=== PATIENT | male | born 1980 | race African-American/Black ===

== ENCOUNTER 2016-10-20 09:17 | Emergency (ER) | payer OTHER ==
[~2016-10-20] VITALS: Ht 180.3 cm; Wt 90.0 kg
[~2016-10-20 09:17] MED LIST: ONDA1TAB16 PO; TRAM50 PO
[2016-10-20 09:19] VITALS: BP 136/80; PULSE 84; RESP 20; TEMP 97.9; O2SAT 100
--- NOTE | 2016-10-20 10:06 | PD ---
HPI Chief Complaint: Flank/Kidney Pain Time Seen by Provider: 10:06 Travel History International Travel<30 days: No Contact w/Intl Traveler<30days: No Traveled to known affect area: No History of Present Illness HPI 36-year-old male presents to the emergency department for evaluation right upper quadrant and epigastric pain worsening over the last several days. Patient reports nausea and vomiting. States he had a fever last evening. Patient has been a constant, aching, sharp, 8 out of 10 pain. Has no history of cholecystectomy. Has been told that he has IBD. He has diarrhea all the time. It has been without any emlvin red blood or black tar stools. Denies any hematemesis. He has no other symptoms reported this time. [facility] Past Medical History Blood Disorders: No Cancer: No Cardiovascular Problems: No Diminished Hearing: No Endocrine: No Gastrointestinal Disorders: Yes Genitourinary: Yes (PRESSURE/PAIN URINATING X 2-3 MOS, WORSE LAST WEEK) Musculoskeletal: No Neurologic: No Psychiatric: No Reproductive: No Respiratory: No Past Surgical History Tonsillectomy: Yes Other Surgery: Yes (ARMPIT SWEAT GLAND REMOVAL, RECTAL CYST REMOVED) Social History Alcohol Use: No Tobacco Use: No Substance Use: No Allergies-Medications (Allergen,Severity, Reaction): Coded Allergies: Seafood (Verified Allergy, Severe, Swelling, 10/20/16) Reported Meds & Prescriptions Reported Meds & Active Scripts Active Reported [2 refridge meds?] Omeprazole 20 Mg Cap 20 Mg PO DAILY Loperamide (Loperamide HCl) 2 Mg Tab Prednisone 10 Mg Tab 10 Mg PO DAILY [azothioprine] 50 Mg Dicyclomine (Dicyclomine HCl) 20 Mg Tab 20 Mg PO QID [toradal] 50 Review of Systems Except as stated in HPI: all other systems reviewed are Neg Physical Exam Narrative GENERAL: Well-nourished male patient, ambulatory and in no acute distress SKIN: Warm and dry. HEAD: Atraumatic. Normocephalic. EYES: Pupils equal and round. No scleral icterus. No injection or drainage. ENT: No nasal bleeding or discharge. Mucous membranes pink and moist. NECK: Trachea midline. No JVD. CARDIOVASCULAR: Regular rate and rhythm. No murmur appreciated. RESPIRATORY: No accessory muscle use. Clear to auscultation. Breath sounds equal bilaterally. GASTROINTESTINAL: Abdomen soft, nondistended. Epigastric and right upper quadrant tenderness to palpation. No guarding. No rebound tenderness.. Hepatic and splenic margins not palpable. MUSCULOSKELETAL: No obvious deformities. No clubbing. No cyanosis. No edema. NEUROLOGICAL: Awake and alert. No obvious cranial nerve deficits. Motor grossly within normal limits. Normal speech. PSYCHIATRIC: Appropriate mood and affect; insight and judgment normal. Data Data Last Documented VS Vital Signs Date Time Temp Pulse Resp B/P Pulse Ox O2 Delivery O2 Flow Rate FiO2 10/20/16 09:19 97.9 84 20 136/80 100 Room Air Orders Ondansetron Inj (Zofran Inj) (10/20/16 10:15) Sodium Chloride 0.9% Flush (Ns Flush) (10/20/16 10:15) Ketorolac Inj (Toradol Inj) (10/20/16 10:15) Sodium Chlor 0.9% 1000 Ml Inj (Ns 1000 M (10/20/16 10:15) MDM Medical Decision Making Medical Screen Exam Complete: Yes Emergency Medical Condition: Yes Medical Record Reviewed: Yes Differential Diagnosis Gastritis versus cholecystitis versus cholelithiasis versus renal calculi versus biliary colic Narrative Course 36-year-old male presents to the emergency department for evaluation of abdominal pain. Workup is ordered however patient states he does not want a workup. He does not want an IV. He does not want any lab work. I explained the patient that we cannot find out what was probably the without initiating a workup. I stated that if he is not interested in workup that he could always choose to leave AGAINST MEDICAL ADVICE but I did not advise this. I encouraged him to stay. He states that he does not want to stay and verbalize full understanding that by leaving the his condition may worsen resulting in visceral injury, sepsis, or even . He states that he is okay with that and he will return immediately with any acute worsening of symptoms. Diagnosis Primary Impression: Abdominal pain Qualified Code: R10.11 - Right upper quadrant abdominal pain Additional Impressions: Nausea & vomiting Qualified Code: R11.2 - Nausea and vomiting, intractability of vomiting not specified, unspecified vomiting type Fever Qualified Code: R50.9 - Fever, unspecified fever cause Disposition: AGAINST MEDICAL ADVICE Condition: Stable Qing Farrar JULIETH Oct 20, 2016 10:06
[2016-10-20] MEDS ORDERED: SODIUM CHLORIDE 0.9% FLUSH 5 ML FLUSH IVF PRN (10:15)
[2016-10-20] MEDS ORDERED: ONDANSETRON HCL 4 MG/2 ML VIAL IVP ONE (10:15)
[2016-10-20] MEDS ORDERED: SODIUM CHLOR 0.9% 1000 ML INJ 1,000 ML IV ONE (10:15)
[2016-10-20] MEDS ORDERED: KETOROLAC TROMETHAMINE 30 MG/ML (IVP) VIAL IVP ONE (10:15)
[2016-10-20] MEDS ORDERED: DICY20TA10 PO (11:23)
[2016-10-20] MEDS ORDERED: [UNRECOGNIZED DRUG - OTHER] (11:23)
[2016-10-20] MEDS ORDERED: PRED10 PO (11:23)
[2016-10-20] MEDS ORDERED: LOPE1TAB9 (11:23)
[2016-10-20] MEDS ORDERED: OMEP20CA2 PO (11:23)
[2016-10-20] MEDS ORDERED: [UNRECOGNIZED DRUG - REMARK] (11:23)
[2016-10-20] MEDS ORDERED: [UNRECOGNIZED DRUG - OTHER] (11:23)
== END 2016-10-20 11:24 | disposition left against medical advice (07) ==
LOC: NEPB 09:17
DX: R10.11 Right upper quadrant pain (principal); R11.2 Nausea with vomiting, unspecified; R50.9 Fever, unspecified
CPT/HCPCS: 99283